=== PATIENT | male | born 1965 | race Caucasian/White ===

== ENCOUNTER 2021-11-26 11:14 | Emergency (ER) | payer OTHER, SELFPAY ==
--- NOTE | ~2021-11-26 | XR_ITS ---
EXAMINATION: XR finger 2nd RT min 2V INDICATION: Right second finger pain, foreign body TECHNIQUE: Four views of the right second finger are obtained. COMPARISON: None available FINDINGS: There is a curved metallic foreign body in the tuft soft tissues of the right second finger . There is no fracture. Mild osteoarthritis is noted in the interphalangeal joints as well as at the second and third metacarpophalangeal joints. There appears to be a well-circumscribed lucent lesion i n the fourth middle phalanx, likely an enchondroma. IMPRESSION: 1. Curved metallic foreign body in the tuft soft tissues of the right second finger. No underlying os seous abnormality. Reviewed, dictated and finalized at location A. IMPRESSION: 1. Curved metallic foreign body in the tuft soft tissues of the right second fi nger. No underlying osseous abnormality.
[2021-11-26 11:17] VITALS: PULSE 91; RESP 20; TEMP 36.5; O2SAT 97
--- NOTE | 2021-11-26 12:01 | ED.SKABFB ---
HPI - Skin/Abscess/Foreign Bdy General Chief complaint: Skin/Abscess/Foreign Body Stated complaint: finger injury - wire through finger Time Seen by Provider: 11/26/21 11:29 History of Present Illness HPI narrative: 55-year-old male presents the emergency room for evaluation of foreign object in his right index finger. Patient states that he was moving juana of corn, when a wire broke off from the container and was stuck into his finger. Related Data Home Medications Medication Instructions Recorded Confirmed acetaminophen [Tylenol Arthritis] 650 mg PO DAILY 11/26/21 loratadine [Claritin] 10 mg PO DAILY 11/26/21 Allergies Allergy/AdvReac Type Severity Reaction Status Date / Time penicillin G Allergy Mild Hives Verified 11/26/21 11:23 Review of Systems Review of Systems: CONSTITUTIONAL: Denies fever, chills, or sweats. EYES: Denies visual changes, redness, or discharge. ENT: Denies rhinorrhea, congestion, sore throat, or otalgia. CARDIOVASCULAR: Denies chest pain, palpitations, or edema. RESPIRATORY: Denies cough or dyspnea. GASTROINTESTINAL: Denies abdominal pain, nausea, vomiting, or diarrhea. GENITOURINARY: Denies dysuria or hematuria. SKIN: Denies rash or itching. MUSCULOSKELETAL: Foreign object right index finger NEUROLOGIC: Denies headache, numbness, dizziness, or weakness. PSYCHIATRIC: Denies anxiety or depression. Exam Narrative: CONSTITUTIONAL: Denies fever, chills, or sweats. EYES: Denies visual changes, redness, or discharge. ENT: Denies rhinorrhea, congestion, sore throat, or otalgia. CARDIOVASCULAR: Denies chest pain, palpitations, or edema. RESPIRATORY: Denies cough or dyspnea. GASTROINTESTINAL: Denies abdominal pain, nausea, vomiting, or diarrhea. GENITOURINARY: Denies dysuria or hematuria. SKIN: Metal foreign object noted to anterior side of right index finger MUSCULOSKELETAL: Denies back pain, joint pain, or myalgia. NEUROLOGIC: Denies headache, numbness, dizziness, or weakness. PSYCHIATRIC: Denies anxiety or depression. Course Vital Signs Vital signs: Vital Signs Temperature 36.5 C 11/26/21 11:17 Pulse Rate 91 11/26/21 11:17 Respiratory Rate 20 11/26/21 11:17 Pulse Oximetry 97 11/26/21 11:17 Temperature 36.5 C 11/26/21 11:17 Pulse Rate 91 11/26/21 11:17 Respiratory Rate 20 11/26/21 11:17 Pulse Oximetry 97 11/26/21 11:17 Procedures Foreign Body Removal Foreign Body #1: Foreign Body Removal Date: 11/26/21 Foreign Body Removal Time: 12:51 Time Out Performed: yes Site: right and hand Description of foreign body: other (metal wire) Sedation/Analgesia: none Technique: manual removal Confirmed by:: direct visualization Complications: none Post-procedure exam: awake, alert Neurovascular: normal distal pulse, distal motor function normal and no change from pre-procedure Laceration Laceration 1: Date: 11/26/21 Time: 12:52 Site: hand Side (If applicable): right Size (cm): 2 Description: irregular Depth: simple, single layer Local Anesthetic: lidocaine 1% Amount of anesthesia used (mL): 2 Pre-repair: irrigated extensively ====== Skin Level ====== Skin layer closed with: nylon Size (cm): 5-0 Number of sutures: 4 Technique: simple, interrupted ====== Subcutaneous Layer ====== ====== Muscle Layer ====== ====== Tendon Layer ====== Discharge Plan Discharge Clinical Impression: Foreign body, Laceration Patient Disposition: Home, Self-Care Condition: Stable Instructions: Antibiotic Form, Finger Laceration (ED) Additional Instructions: Keep wound clean and dry. May wash with soap and water. Monitor for signs of infection which include redness, swelling, pain, purulent discharge. Stitches come out in 10 to 14 days. Prescriptions: New cephalexin 500 mg capsule 500 mg P
--- NOTE | 2021-11-26 13:24 | PC.NURSE ---
corey and maddie applied to wound.
== END 2021-11-26 13:10 | disposition home or self-care (01) ==
PROVIDERS: Emergency Provider Nurse Practitioner Family
DX: S61.220A Laceration with foreign body of right index finger without damage to nail, initial encounter (principal); W45.8XXA Other foreign body or object entering through skin, initial encounter
CPT/HCPCS: 12001; 73140; 99283

== ENCOUNTER 2024-05-18 18:41 | Emergency (ER) | payer OTHER, SELFPAY ==
--- NOTE | ~2024-05-18 | XR_ITS ---
EXAMINATION: XR elbow LT min 3V DATE: 05/18/2024 19:10 INDICATION: Left elbow injury post fall TECHNIQUE: Anteroposterior, two oblique and lateral views of the left elbow were obtained. COMPARISON: None. FINDINGS: Alignment is normal. No fracture or joint effusion. Joint spaces are normal. Soft tissue swelling wit h subcutaneous edema along the medial side of the elbow and distal upper arm. IMPRESSION: 1. No elbow joint effusion or osseous abnormality. Reviewed, dictated and finalized at location A.
--- NOTE | ~2024-05-18 | XR_ITS ---
EXAMINATION: XR hand LT min 3V DATE: 05/18/2024 19:10 INDICATION: Left hand injury post fall TECHNIQUE: Posteroanterior, oblique and lateral views of the left hand were obtained. COMPARISON: None. FINDINGS: No fracture or traumatic malalignment. There is mild palmar subluxation with moderate osteoarthritis at the third metacarpophalangeal joint. Additional mild osteoarthritis at the triscaphe, first carpom etacarpal and first, second and fourth phalangeal and several interphalangeal joints with distal pred ominance. Soft tissues are unremarkable. IMPRESSION: 1. No acute osseous abnormality. 2. 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 Reviewed, dictated and finalized at location A. IMPRESSION: 1. No acute osseous abnormality. 2. Polyarticular osteoarthritis, moderate at the third metacarpophalangeal join t and otherwise mild.
--- NOTE | ~2024-05-18 | XR_ITS ---
EXAMINATION: XR knee LT 3V DATE: 05/18/2024 19:10 INDICATION: Left knee injuries post fall TECHNIQUE: Anteroposterior, oblique and crosstable lateral views of the left knee were obtained COMPARISON: None. FINDINGS: Alignment is normal. No fracture. Joint spaces appear normal on nonweightbearing imaging. Tiny laya nal osteophytes at the lateral and patellofemoral compartments consistent with at least minimal osteo arthritis. No joint effusion/layering lipohemarthrosis. Mild soft tissue swelling anterior to the lef t knee. IMPRESSION: 1. No left knee joint effusion or acute osseous abnormality. Reviewed, dictated and finalized at location A.
[2024-05-18 18:44] VITALS: BP 163/93; PULSE 69; RESP 16; TEMP 36.4; O2SAT 96
[2024-05-18 18:48] VITALS: BP 163/93; PULSE 69; RESP 16; TEMP 36.4; O2SAT 96
--- NOTE | 2024-05-18 19:06 | ED.FALL ---
HPI - Fall General Chief Complaint: Fall Stated Complaint: LUE , Armando knee pain s/p fall at work Time Seen by Provider: 05/18/24 18:51 History of Present Illness HPI Narrative: Pt fell today and landed on left side. Pt complains of left knee and hand pain and left elbow pain and has large hematoma to medial left elbow/distal humerus. Pt is not on blood thinners. Pt denies LOC or neck pain. Related Data Home Medications Medication Instructions Recorded Confirmed acetaminophen 650 mg 650 mg PO DAILY 11/26/21 tablet,extended release loratadine 10 mg tablet (Claritin) 10 mg PO DAILY 11/26/21 Allergies Allergy/AdvReac Type Severity Reaction Status Date / Time penicillin G Allergy Mild Hives Verified 11/26/21 11:23 Review of Systems Review of Systems: All systems reviewed & are unremarkable except as noted in HPI and below Exam Const: General: healthy appearing and no acute distress Nutritional Appearance: well nourished Orientation/consciousness: patient oriented x3 Limitations: no limitations HENMT: Head: normal to inspection Eyes: Conjunctivae: conjunctivae normal and conjunctival abnormality EOM: EOMs intact bilaterally Neck: Neck: normal visual inspection Resp: Effort & Inspection: normal respiratory effort Auscultation: clear to auscultation bilaterally Cardio: Rate: regular rate Rhythm: regular rhythm Skin: Other: large hematoma medial left elbow. Neuro: General: patient oriented x3, moves all extremities and no focal motor deficits Speech: normal speech Extrem: Other: tender left knee and wrist but no bruising or swelling and no snuff box tenderness. tender medial left elbow and distal humerus with large hematoma present. Psych: Mental Status: mental status grossly normal Affect: normal affect Attitude: cooperative Course Vital Signs Vital signs: Vital Signs Temperature 97.6 F 05/18/24 18:44 Pulse Rate 69 05/18/24 18:44 Respiratory Rate 16 05/18/24 18:44 Blood Pressure 163/93 H 05/18/24 18:44 Pulse Oximetry 96 05/18/24 18:44 Oxygen Delivery Room Air 05/18/24 18:44 Temperature 97.6 F 05/18/24 18:48 Pulse Rate 69 05/18/24 18:48 Respiratory Rate 16 05/18/24 18:48 Blood Pressure 163/93 H 05/18/24 18:48 Pulse Oximetry 96 05/18/24 18:48 Oxygen Delivery Room Air 05/18/24 18:48 MDM - Fall MDM Narrative Medical decision making narrative: fx vs contusion/hematoma. will x ray knee elbow and hand. x rays all neg for fx. Discharge Plan Discharge Clinical Impression: Contusion, Hematoma Patient Disposition: Home, Self-Care Condition: Stable Instructions: Antibiotic Form, Contusion in Adults (ED), Hematoma (ED) Prescriptions: No Action acetaminophen [Tylenol Arthritis] 650 mg Tablet Extended Release 650 mg PO DAILY loratadine [Claritin] 10 mg Tablet 10 mg PO DAILY cephalexin 500 mg capsule 500 mg PO Q8H Qty: 21 0RF Follow-up/Referrals: PHYSICIAN,[employer] [Primary Care Provider] - Stand Alone Forms: Work/School Release IP
== END 2024-05-18 19:41 | disposition home or self-care (01) ==
PROVIDERS: Emergency Provider Emergency Medicine
DX: S50.02XA Contusion of left elbow, initial encounter (principal); M19.042 Primary osteoarthritis, left hand; M19.032 Primary osteoarthritis, left wrist; M18.9 Osteoarthritis of first carpometacarpal joint, unspecified; W19.XXXA Unspecified fall, initial encounter
CPT/HCPCS: 73080; 73130; 73562; 99284